=== PATIENT | female | born 1940 | race African-American/Black ===

== ENCOUNTER → 2017-03-05 | Outpatient (CLI) | payer MEDICARE ==
[~2017-03-05] MED LIST: ACETAMINOPHEN325 MG PO; ALLEGRA180 MG PO; ALTACE10 M1 PO; ALTACE10 M2 PO; ANEXSIA 5/325 M1 TA1 PO; ANTIVERT PO; ASPIRIN81 MG PO; ATORVASTATIN CA10 MG PO; CARVEDILOL25 MG; CARVEDILOL25 MG PO; CIPRO PO; COREG PO; COUMADIN4 MG PO; DARVOCET-N 1001 TA1 PO; DEXILANT; DOXYCYCLINE HY100 M3 PO; FLEXERIL10 MG PO; FUROSEMIDE PO; FUROSEMIDE40 MG PO; ISOSORBIDE MONO30 MG PO; K-DUR20 ME1; K-DUR20 ME1 PO; KCL PO; LIPITOR PO; LOVENOX SUBQ; LOVENOX120 MG/0.8 INJ; LOVENOX40 MG/0.4; LOVENOX40 MG/0.4 INJ; MICARDIS40 MG; MICARDIS40 MG PO; MULTI COMPLETE1 EACH PO; OMEPRAZOLE20 M1 PO; OMEPRAZOLE40 M1 PO; OMEPRAZOLE40 MG PO; PERCOCET5/325 PO; RAMIPRIL10 MG PO; TOPIRAMATE25 MG PO; VICODIN 5/1 TAB 5/50 PO; WARFARIN SODIUM4 MG PO; WARFARIN SODIUM6 MG PO; XARELTO10 MG PO; XARELTO15 MG PO; ZYRTEC5 MG PO
--- NOTE | ~2017-03-05 | CT4 ---
[facility] A Service of [facility] RADIOLOGY TEXT RESULTS PATIENT: ARCHANA HERNANDEZ LOCATION: [facility] : 38 UNIT #: [id number] AGE: [address]: Max Salmeron MD SEX: F ORDER DR: [id number] [facility] [address] [place], [place] [address] [id number] O MR#: [id number] Acc #: [id number] NAME: ARCHANA HERNANDEZ : 1940 SEX: F STUDY DATE/TIME: 03/05/2017 11:06 UNIT: [facility]AT ROOM: STUDY DESCRIPTION: CT Abd and Pelv Wo Cont Attending Physician: Max Salmeron M.D. Referring Physician: Max Salmeron M.D. Ordering Physician: Max Salmeron M.D. Primary Care Physician: Kelvin Mcneil M.D. MEDICAL IMAGING REPORT This report is preliminary unless electronic signature is present EXAM CT abdomen and pelvis without contrast 03/05/2017 INDICATIONS Restaging lung cancer. Observation for metastatic disease. Intermittent diarrhea for the past 1-2 months with lower abdominal pain. PROCEDURE Unenhanced CT of the abdomen and pelvis. This CT exam was performed with one or more of the following radiation dose reduction techniques: automatic exposure control, adjustment of mA and/or kV according to patient size, and iterative reconstruction. COMPARISON STUDIES 10/29/2016 FINDINGS ABDOMEN WITHOUT CONTRAST: Refer to the separately dictated chest CT for thoracic findings. The liver, spleen, kidneys, adrenal glands, pancreas have an unremarkable unenhanced appearance. Previous cholecystectomy. Inferior vena cava filter in place. Uncomplicated left-sided colonic diverticula. Fat-containing umbilical hernia measures 2.9 cm. PELVIS WITHOUT CONTRAST: Previous hysterectomy. No pelvic mass or fluid. No aggressive appearing bone lesion. IMPRESSION 1. No acute findings. 2. No evidence for metastatic disease in the abdomen or pelvis. [facility] A Service of [facility] RADIOLOGY TEXT RESULTS PATIENT: ARCHANA HERNANDEZ LOCATION: [facility] : 38 UNIT #: [id number] AGE: [address]: Max Salmeron MD SEX: F ORDER DR: Dictated by... Michael Shepherd M.D. THIS IS AN ELECTRONICALLY VERIFIED REPORT Michael Shepherd M.D. at 03/06/2017 7:11 AM RAYSA/gino TD: 03/05/2017 15:24 JOB #: [id number] MEDICAL IMAGING REPORT Page 1 of 1 COPY
--- NOTE | ~2017-03-05 | CT57 ---
[facility] A Service of [facility] RADIOLOGY TEXT RESULTS PATIENT: ARCHANA HERNANDEZ LOCATION: [facility] : 38 UNIT #: [id number] AGE: [address]: Max Salmeron MD SEX: F ORDER DR: [id number] [facility] [address] [place], [place] [address] [id number] O MR#: [id number] Acc #: [id number] NAME: ARCHANA HERNANDEZ : 1940 SEX: F STUDY DATE/TIME: 03/05/2017 11:06 UNIT: [facility] ROOM: STUDY DESCRIPTION: CT Chest Wo Cont Attending Physician: Max Salmeron M.D. Referring Physician: Max Salmeron M.D. Ordering Physician: Max Salmeron M.D. Primary Care Physician: Kelvin Mcneil M.D. MEDICAL IMAGING REPORT This report is preliminary unless electronic signature is present EXAM CT chest without contrast 03/05/2017 INDICATIONS Right lung cancer restaging. Previous right lower lobectomy. Pleural effusion. PROCEDURE Unenhanced CT of the chest. This CT exam was performed with one or more of the following radiation dose reduction techniques: automatic exposure control, adjustment of mA and/or kV according to patient size, and iterative reconstruction. COMPARISON 04/27/2016 FINDINGS Lungs are clear. No suspicious nodule. Previous right lower lobectomy. No adenopathy. No acute findings in the included upper abdomen. No aggressive appearing bone lesion. IMPRESSION 1. No evidence for metastatic disease in the chest. 2. Previous right lower lobectomy. 3. No acute findings. Dictated by... Michael Shepherd M.D. THIS IS AN ELECTRONICALLY VERIFIED REPORT Michael Shepherd M.D. at 03/06/2017 7:11 AM RAYSA/gino [facility] A Service [facility] RADIOLOGY TEXT RESULTS PATIENT: ARCHANA HERNANDEZ LOCATION: [facility] : 38 UNIT #: [id number] AGE: [address]: Max Salmeron MD SEX: F ORDER DR: TD: 03/05/2017 15:23 JOB #: [id number] MEDICAL IMAGING REPORT Page 1 of 1 COPY
== END | disposition home or self-care (01) ==
LOC: CCAT 10:38
DX: J91.8 Pleural effusion in other conditions classified elsewhere (principal); I80.12 Phlebitis and thrombophlebitis of left femoral vein; Z90.2 Acquired absence of lung [part of]
CPT/HCPCS: 71250; 74176

== ENCOUNTER → 2017-04-25 | Day surgery (SDC) | payer MEDICARE ==
--- NOTE | ~2017-04-25 | OR ---
Unit #: [id number] #: [id number] Patient: ARCHANA HERNANDEZ [id number] [address] [address] [id number] O MR#: [id number] NAME: ARCHANA HERNANDEZ ROOM: Date of Procedure: 04/25/2017 Admission Date: 04/25/2017 Surgeon: Joe Gilbert M.D. : 1940 Attending Physician: Joe Gilbert M.D. Primary Care Physician: Kelvin Mcneil M.D. OPERATIVE REPORT PRIMARY CARE PHYSICIAN Kelvin Mcneil M.D. PREOPERATIVE DIAGNOSES The patient has presented with history of epigastric pain, postprandial dyspepsia, and left and right upper quadrant abdominal pain. PROCEDURES PERFORMED 1. Upper gastrointestinal endoscopy and biopsy. 2. Upper gastrointestinal endoscopy and polypectomy. POSTOPERATIVE DIAGNOSES 1. The patient had mild prepyloric antral erosive gastritis. 2. There were multiple polyps in the stomach varying in size from 5 mm to 3 cm. All were sessile and a most likely hyperplastic polyps. A 1 cm polyp was removed for sampling using snare polypectomy and sent for histology. RECOMMENDATIONS The patient will be followed up in the office in 6 to 8 weeks' time along with results of histology. SEDATION USED MAC. DESCRIPTION OF PROCEDURE Following detailed explanation of the potential risks and complications of an upper endoscopy, namely perforation, bleeding, and complications related to sedation, the patient was brought to GI lab and laid in the left lateral decubitus position. Lubricated tip of the Olympus video upper endoscope was passed through the bite block into the proximal esophagus under direct vision. The entire esophageal mucosa was examined and appeared normal. Z-line was nicely demarcated, there being no esophagitis or hiatus hernia. The scope was then advanced into the gastric cavity and the latter was insufflated. Mucosa of the fundus, body, and antrum was examined and multiple gastric polyps were noted in the stomach. These ranged in size from 5 mm to 3 cm. They were mostly present in the fundus and body of the stomach. In addition, there was pre-pyloric antral erythema erosions indicating mild antral gastritis. Pylorus was intubated with visualization of the normal duodenal bulb and second and third part of the duodenum. Upon withdrawal and retroflexion, incisura, cardia, and greater curve was examined and a biopsy was obtained Unit #: [id number] #: [id number] Patient: ARCHANA HERNANDEZ from the antrum for CLOtest. The scope was then withdrawn in the fundic area of the stomach and one of the support representative polyp was removed. This was about 1.2 cm in size. It was retrieved and sent for histology. The scope was then withdrawn in the distal esophagus. The entire esophageal mucosa was examined all the way up to pharynx. No additional findings were noted. The patient tolerated the procedure without any postprocedure complications. Dictated by... Nicole Man/vasiliy TD: 04/25/2017 17:23 JOB #: [id number] OPERATIVE REPORT Page 1 of 1 X Joe Gilbert MD X PROCEDURE OPERATIVE NOTE
== END | disposition home or self-care (01) ==
LOC: COPS 12:06
DX: K31.7 Polyp of stomach and duodenum (principal); K29.00 Acute gastritis without bleeding; K21.9 Gastro-esophageal reflux disease without esophagitis; I10 Essential (primary) hypertension; G47.30 Sleep apnea, unspecified; Z88.0 Allergy status to penicillin; Z86.711 Personal history of pulmonary embolism; Z79.01 Long term (current) use of anticoagulants; Z79.899 Other long term (current) drug therapy; Z90.49 Acquired absence of other specified parts of digestive tract; Z90.711 Acquired absence of uterus with remaining cervical stump; Z98.890 Other specified postprocedural states
CPT/HCPCS: 87077; 88305; 88312

== ENCOUNTER → 2017-05-31 | Outpatient (CLI) | payer MEDICARE ==
--- NOTE | ~2017-05-31 | CT57 ---
[facility] A Service of [facility] RADIOLOGY TEXT RESULTS PATIENT: ARCHANA HERNANDEZ LOCATION: [facility] : 38 UNIT #: [id number] AGE: [address]: Juan Antonio Cole MD SEX: F ORDER DR: [id number] [facility] [address] [place], [place] [address] [id number] O MR#: [id number] Acc #: [id number] NAME: ARCHANA HERNANDEZ : 1940 SEX: F STUDY DATE/TIME: 05/31/2017 13:28 UNIT: [facility] ROOM: STUDY DESCRIPTION: CT Chest Wo Cont Attending Physician: Juan Antonio Cole M.D. Referring Physician: Juan Antonio Cole M.D. Ordering Physician: Juan Antonio Cole M.D. Primary Care Physician: Kelvin Mcneil M.D. MEDICAL IMAGING REPORT This report is preliminary unless electronic signature is present EXAM Chest CT without contrast HISTORY Shortness of breath with exertion since surgery in the right lung 5 years ago. Lung cancer. Evaluate for chest malignancy suspected. COMPARISON STUDIES Comparison from 03/05/2017 TECHNIQUE Axial images were obtained without contrast and evaluated at lung and mediastinal windows. This CT exam was performed with one or more of the following radiation dose reduction techniques: automatic exposure control, adjustment of mA and/or kV according to patient size, and iterative reconstruction. FINDINGS Chest images at mediastinal window show no enlarged mediastinal or hilar lymph nodes. Calcified nodes are seen consist with previous granulomatous infection. There is no evidence of pleural or pericardial fluid. Lung window imaging shows postoperative changes on the right. No suspicious masses or infiltrates are seen. No evidence of bronchiectasis. IMPRESSION Stable postoperative chest. No evidence of recurrent malignancy. No evidence of metastatic disease. Dictated by... Joshua Velez M.D. [facility] A Service of [facility] RADIOLOGY TEXT RESULTS PATIENT: ARCHANA HERNANDEZ LOCATION: [facility] : 38 UNIT #: [id number] AGE: [address]: Juan Antonio Cole MD SEX: F ORDER DR: THIS IS AN ELECTRONICALLY VERIFIED REPORT Joshua Velez M.D. at 06/01/2017 4:47 PM ISIAH/gino TD: 06/01/2017 15:26 JOB #: [id number] MEDICAL IMAGING REPORT Page 1 of 1 COPY
== END | disposition home or self-care (01) ==
LOC: CCAT 12:54
DX: Z08 Encounter for follow-up examination after completed treatment for malignant neoplasm (principal); Z85.118 Personal history of other malignant neoplasm of bronchus and lung; Z98.890 Other specified postprocedural states
CPT/HCPCS: 71250

== ENCOUNTER → 2017-08-09 | Outpatient (CLI) | payer MEDICARE ==
--- NOTE | ~2017-08-09 | MY29 ---
[facility] A Service of [facility] RADIOLOGY TEXT RESULTS PATIENT: ARCHANA HERNANDEZ LOCATION: [facility] : 38 UNIT #: [id number] AGE: [address]: Kelvin Mcneil MD SEX: F ORDER DR: [id number] [place] [id number] [facility]. [place], [place] [address] [id number] O MR#: [id number] Acc #: [id number] NAME: ARCHANA HERNANDEZ : 1940 SEX: F STUDY DATE/TIME: 08/09/2017 11:36 UNIT: [facility] ROOM: STUDY DESCRIPTION: MY [facility] SCREENING W/ CAD BILAT Attending Physician: Kelvin Mcneil M.D. Referring Physician: Kelvin Mcneil M.D. Ordering Physician: Kelvin Mcneil M.D. Primary Care Physician: Kelvin Mcneil M.D. MEDICAL IMAGING REPORT This report is preliminary unless electronic signature is present EXAM Bilateral digital screening mammogram with CAD, 08/09/2017 INDICATION 76-year-old female for routine screening. No reported problems and no personal history of breast cancer. Family history positive in a sister. No surgeries. TECHNIQUE CC and MLO views of the breasts were obtained and reviewed with an approved CAD device. COMPARISON 06/09/2016, 03/30/2015, 12/29/2013 FINDINGS Breast parenchyma is composed of scattered fibroglandular densities and the pattern is unchanged. There is no new dominant nodule or mass in either breast. No new suspicious cluster of microcalcifications. Faint benign-appearing nodularity bilaterally is stable for technical factors along with benign appearing calcifications. IMPRESSION Benign screening mammogram. 1-year followup recommended. Patients over the age of 40 are entered into a reminder system with target due date for the next mammogram. A result letter will also be sent to the patient. BIRADS: 2 Benign finding [facility] A Service of [facility] RADIOLOGY TEXT RESULTS PATIENT: ARCHANA HERNANDEZ LOCATION: [facility] : 38 UNIT #: [id number] AGE: [address]: Kelvin Mcneil MD SEX: F ORDER DR: Dictated by... Satnam Pantoja M.D. THIS IS AN ELECTRONICALLY VERIFIED REPORT Satnam Pantoja M.D. at 08/10/2017 8:28 AM CHRIS/fernando TD: 08/10/2017 01:55 JOB #: [id number] MEDICAL IMAGING REPORT Page 1 of 1 COPY
== END | disposition home or self-care (01) ==
LOC: CWCC 11:28
DX: Z12.31 Encounter for screening mammogram for malignant neoplasm of breast (principal); Z80.3 Family history of malignant neoplasm of breast
CPT/HCPCS: G0202